=== PATIENT | male | born 1975 | race Caucasian/White ===

== ENCOUNTER 2021-09-30 13:23 | Emergency (ER) | payer MEDICARE, SELFPAY ==
--- NOTE | 2021-09-30 13:39 | ED.EXTPRO ---
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 Was lifting her and felt that his heel was going down over an edge so he went up on his toes and turned put her down. He felt sudden pop like somebody had shot him in right calf or whacked him with the bat. He is having difficulty flexing his toes without having severe pain in his right calf. Denies any fever chills nausea vomiting. MD Complaint: extremity pain Onset (ago): day(s) (1) Pain Consistency: constant Location: right and lower extremity Quality: burning, stabbing and sharp Radiation: none Relieving factors: immobilization Exacerbating factors: weight bearing, walking and palpation Associated symptoms: denies other symptoms Related Data Home Medications Medication Instructions Recorded Confirmed lisinopril 10 mg PO DAILY 09/30/21 09/30/21 Allergies Allergy/AdvReac Type Severity Reaction Status Date / Time No Known Allergies Allergy Verified 09/30/21 13:58 Review of Systems Review of Systems: All systems reviewed & are unremarkable except as noted in HPI and below PMFSH Past Medical History Medical History (Updated 09/30/21 @ 14:02 by Lukasz Dick MD) Hypertension Surgical History Surgical History (Updated 09/30/21 @ 14:02 by Lukasz Dick MD) Previous back surgery lumbar Social History Social History (Updated 09/30/21 @ 14:03 by Lukasz Dick MD) Smoking status: Former smoker Alcohol intake: never Substance use: current Substance use type: marijuana Other substance usage details: occasional Exam Const: General: healthy appearing, no acute distress and alert Nutritional Appearance: well nourished and obese centrally obese Orientation/consciousness: patient oriented x3 HENMT: Head: normal to inspection Ears: external ears normal Eyes: Conjunctivae: conjunctivae normal Pupils: Equal, round and reactive pupils present EOM: EOMs intact bilaterally Neck: Neck: normal visual inspection Resp: Effort & Inspection: normal respiratory effort Auscultation: clear to auscultation bilaterally Cardio: Rate: regular rate Rhythm: regular rhythm GI: GI Palp: Yes Soft to palpation and No Tenderness to palpation present (GI) Auscultation: normal bowel sounds Back/Spine/Pelvis: Cervical Spine: cervical ROM normal Thoracic/Lumbar Spine: thoraco-lumbar ROM normal Skin: General skin exam: normal color Rashes: no rashes Neuro: General: patient oriented x3, moves all extremities, no meningeal signs, no focal motor deficits and CN's II-XI intact bilaterally Speech: normal speech Gait exam (Neuro): Normal gait present ( limping gait) Extrem: General: normal exam except as noted and calf tenderness on the right ( tenderness over the central portion of the gastrocnemius muscle with some swelling no ecchymosis) Right lower extremity: lower leg Details: tenderness ( Over right medial belly of the gastrocnemius), localized swelling Location: of the mid lower leg and other ( Orellana's test causes flexion at the Achilles tendon but weaker than on the left) Psych: Appearance: grossly normal and well kempt Mental Status: mental status grossly normal Affect: normal affect Thought content: Yes Normal thought content present Course Course Emergency Course: I offered patient immobilization and isolation of the gastrocnemius muscle with a OCL cast that would extend from the lower thigh all the way to the toes with some slight flexion at the ankle. He declined at this time due to the care he needs to give to his mother and he could not have his leg immobilized. He declined crutches. Discharge Plan Discharge Clinical Impression: Gastrocnemius musc
[2021-09-30 13:42] VITALS: BP 125/79; PULSE 70; RESP 16; TEMP 35.8; O2SAT 98
[2021-09-30] MEDS: KETOROLAC (*BKC) 60 MG/2 ML VIAL IM (14:02)
== END 2021-09-30 14:16 | disposition home or self-care (01) ==
PROVIDERS: Emergency Provider Emergency Medicine
DX: S86.111A Strain of other muscle(s) and tendon(s) of posterior muscle group at lower leg level, right leg, initial encounter (principal); I10 Essential (primary) hypertension
CPT/HCPCS: 96372; 99283; J1885